=== PATIENT | male | born 1960 | race Caucasian/White ===

== ENCOUNTER → 2018-01-05 | Outpatient (CLI) | payer BC ==
[~2018-01-05] MED LIST: BENICAR20 MG PO; OTEZLA PO
--- NOTE | 2018-01-05 11:51 | Diagnostic Imaging Report ---
PROCEDURE:CHEST 2 VIEWS TECHNIQUE:PA and lateral chest INDICATION:TB test COMPARISON:None. FINDINGS: Lungs are clear and symmetrically inflated. No pleural effusions. Normal heart size, mediastinal contour, and pulmonary vasculature. Intact skeleton. CONCLUSION: No evidence of active infection. Dictated by: Roverto Butler M.D. on 01/05/2018 at 11:53 Electronically approved by: Roverto Butler M.D. on 01/05/2018 at 11:53
== END ==
LOC: RAD 10:56
PROVIDERS: ATTEND Dermatology
DX: Z79.899 Other long term (current) drug therapy (principal)
CPT/HCPCS: 71046

== ENCOUNTER 2020-09-04 04:41 | Emergency (ER) | payer BC ==
[~2020-09-04] VITALS: Ht 188 cm; Wt 117.9 kg
[2020-09-04 04:55] LABS: BASOPHILS # (AUTO) 0.1 (0.0-0.1); BASOPHILS % 0.8 % (0.0-1.0); EOSINOPHILS % 0.4 % (0.0-6.0); HEMATOCRIT 47.8 % (38.2-49.6); HEMOGLOBIN 16.6 g/dL (14.0-18.0); LYMPHOCYTES # (AUTO) 1.4 (1.0-3.2); LYMPHOCYTES % 17.7 % (18.0-39.1); MEAN CORPUSCULAR HEMOGLOBIN 29.7 pg (28-32); MEAN CORPUSCULAR HGB CONC 34.7 g/dL (31-35); MEAN CORPUSCULAR VOLUME 85.7 fL (81-99); MONOCYTES # (AUTO) 0.4 (0.2-0.8); MONOCYTES % 5.3 % (4.4-11.3); NEUTROPHILS % 75.2 % (38.7-80.0); PLATELET COUNT 291 x10e3/uL (140-360); RED BLOOD COUNT 5.58 x10e6/uL (4.3-5.7); RED CELL DISTRIBUTION WIDTH 12.1 % (11.7-14.4)
[2020-09-04 05:14] LABS: ALANINE AMINOTRANSFERASE 29 IU/L (0-55); ALBUMIN 4.1 g/dL (3.5-5.0); ALBUMIN/GLOBULIN RATIO 1.4 (0.8-2.0); ALKALINE PHOSPHATASE 71 IU/L (40-150); BLOOD UREA NITROGEN 15 mg/dL (7-26); BUN/CREATININE RATIO 15 (6-25); CALCIUM 8.9 mg/dL (8.4-10.2); CARBON DIOXIDE 24 mmol/L (22-29); CHLORIDE 103 mmol/L (98-107); CREATINE KINASE 89 IU/L (30-200); CREATININE, SERUM 1.03 mg/dL (0.72-1.25); EST GLOMERULAR FILTRATION RATE > 60 ML/MIN (60-); GLUCOSE 130 mg/dL (74-118); SODIUM 139 mmol/L (136-145)
[2020-09-04 07:39] VITALS: BP 137/100
== END 2020-09-04 07:41 | disposition home or self-care (01) ==
LOC: ER 04:48
DX: I10 Essential (primary) hypertension (principal); Z88.0 Allergy status to penicillin; Z91.010 Allergy to peanuts; Z88.6 Allergy status to analgesic agent; Z86.19 Personal history of other infectious and parasitic diseases
CPT/HCPCS: 36415; 70450; 71045; 80053; 82550; 82553; 84484; 85025; 93005; 99284

== ENCOUNTER 2023-11-14 09:53 | Inpatient (IN) | payer BC ==
[~2023-11-14] VITALS: Ht 203.2 cm; Wt 136.1 kg
[2023-11-14] VITALS (9 sets, daily range): BP systolic 124–150; BP diastolic 72–103; PULSE 68–77; RESP 16–20; TEMP 97.4–98.4; O2SAT 96–100
[2023-11-14 10:21] LABS: BASOPHILS # (AUTO) 0.1 (0.0-0.1); BASOPHILS % 0.5 % (0.0-1.0); EOSINOPHILS # (AUTO) 0.1 (0.0-0.4); EOSINOPHILS % 0.5 % (0.0-6.0); HEMATOCRIT 56.4 % (38.2-49.6); HEMOGLOBIN 19.6 g/dL (14.0-18.0); LYMPHOCYTES # (AUTO) 1.7 (1.0-3.2); LYMPHOCYTES % 12.9 % (18.0-39.1); MEAN CORPUSCULAR HEMOGLOBIN 32.2 pg (28-32); MEAN CORPUSCULAR HGB CONC 34.8 g/dL (31-35); MEAN CORPUSCULAR VOLUME 92.8 fL (81-99); MONOCYTES # (AUTO) 0.9 (0.2-0.8); MONOCYTES % 7.3 % (4.4-11.3); NEUTROPHILS # (AUTO) 10.1 (2.1-6.9); PLATELET COUNT 252 x10e3/uL (140-360); RED BLOOD COUNT 6.08 x10e6/uL (4.3-5.7); RED CELL DISTRIBUTION WIDTH 13.2 % (11.7-14.4); WHITE BLOOD COUNT 12.88 x10e3/uL (4.8-10.8)
[2023-11-14 10:35] LABS: INR 0.94; PARTIAL THROMBOPLASTIN TIME 24.6 seconds (23.8-35.5); PROTHROMBIN TIME 13.2 seconds (11.9-14.5)
[2023-11-14 10:42] LABS: ALBUMIN 3.8 g/dL (3.5-5.0); ALBUMIN/GLOBULIN RATIO 1.2 (0.8-2.0); ANION GAP 14.1 mmol/L (8-16); BILIRUBIN,TOTAL 0.6 mg/dL (0.2-1.2); CALCIUM 9.3 mg/dL (8.4-10.2); CREATININE, SERUM 0.96 mg/dL (0.72-1.25); MAGNESIUM 1.9 MG/DL (1.3-2.1); POTASSIUM 4.1 mmol/L (3.5-5.1)
[2023-11-14 10:48] LABS: TROPONIN I 0.003 ng/mL (0-0.300)
[2023-11-14] MEDS ORDERED: Sodium Chloride 0.9% 50ML Bag ONE (10:49)
[2023-11-14] MEDS ORDERED: IOPAMIDOL 370 MG/ML 100 ML INFUS..BTL INJ ONE ×2 (10:49→11:24)
[2023-11-14] MEDS ORDERED: ASPIRIN 81 MG ENTERIC COATED PO ONE (11:42)
[2023-11-14] MEDS: ASPIRIN 81 MG CHEW TAB PO ONE (11:44)
[2023-11-14] MEDS ORDERED: ONDANSETRON HCL INJ 2MG/ML 2ML 2 MG/ML VIAL IV PRN (11:45)
[2023-11-14] MEDS ORDERED: ASPIRIN 81 MG CHEW TAB ONE (11:46)
[2023-11-14] MEDS ORDERED: HYDRALAZINE HCL 20 MG/ML VIAL ONE (13:18)
[2023-11-14] MEDS: HYDRALAZINE HCL 20 MG/ML VIAL IV PRN (13:19)
[2023-11-14] MEDS: AMLODIPINE BESYLATE 5 MG TAB PO SCH (13:45)
[2023-11-14] MEDS ORDERED: ALBUTEROL/IPRATROPIUM 3 ML NEB NEB PRN (15:15)
[2023-11-14] MEDS ORDERED: AMLODIPINE BESYL5 MG PO (15:49)
[2023-11-14] MEDS ORDERED: ATENOLOL50 MG PO (15:49)
[2023-11-14] MEDS ORDERED: AMLODIPINE BESYLATE 5 MG TAB ONE (16:12)
[2023-11-14] MEDS ORDERED: ENOXAPARIN SOD INJ 40 MG/0.4 ML SYR SC ONE (16:16)
[2023-11-14] MEDS: ENOXAPARIN SOD INJ 40 MG/0.4 ML SYR SC SCH (17:00)
[2023-11-14 20:10] LABS: TROPONIN I 0.001 ng/mL (0-0.300)
[2023-11-14] MEDS: FAMOTIDINE 20 MG/2 ML VIAL IV SCH (21:20)
[2023-11-15] VITALS (8 sets, daily range): BP systolic 135–155; BP diastolic 93–115; PULSE 71–97; RESP 18–21; TEMP 97.4–98.3; O2SAT 95–98
[2023-11-15 01:02] LABS: TROPONIN I 0.009 ng/mL (0-0.300)
[2023-11-15] MEDS: ACETAMINOPHEN 325 MG TAB PO PRN (05:01)
[2023-11-15 05:35] LABS: BASOPHILS # (AUTO) 0.1 (0.0-0.1); BASOPHILS % 0.5 % (0.0-1.0); EOSINOPHILS # (AUTO) 0.1 (0.0-0.4); EOSINOPHILS % 0.5 % (0.0-6.0); HEMATOCRIT 57.8 % (38.2-49.6); HEMOGLOBIN 19.1 g/dL (14.0-18.0); LYMPHOCYTES # (AUTO) 1.4 (1.0-3.2); LYMPHOCYTES % 12.6 % (18.0-39.1); MEAN CORPUSCULAR HEMOGLOBIN 31.2 pg (28-32); MEAN CORPUSCULAR VOLUME 94.3 fL (81-99); MONOCYTES # (AUTO) 0.8 (0.2-0.8); MONOCYTES % 6.6 % (4.4-11.3); NEUTROPHILS # (AUTO) 9.1 (2.1-6.9); NEUTROPHILS % 79.2 % (38.7-80.0); PLATELET COUNT 266 x10e3/uL (140-360); RED BLOOD COUNT 6.13 x10e6/uL (4.3-5.7); RED CELL DISTRIBUTION WIDTH 13.2 % (11.7-14.4); WHITE BLOOD COUNT 11.43 x10e3/uL (4.8-10.8)
[2023-11-15 06:23] LABS: ALBUMIN 3.9 g/dL (3.5-5.0); ALBUMIN/GLOBULIN RATIO 1.3 (0.8-2.0); ANION GAP 15.7 mmol/L (8-16); BILIRUBIN,TOTAL 0.8 mg/dL (0.2-1.2); CALCIUM 9.1 mg/dL (8.4-10.2); CHOL/HDL RATIO 5.7 (3.9-4.7); CREATININE, SERUM 0.94 mg/dL (0.72-1.25); POTASSIUM 3.7 mmol/L (3.5-5.1)
[2023-11-15] MEDS ORDERED: AMLODIPINE BESYLATE 5 MG TAB PO SCH (09:00)
[2023-11-15] MEDS ORDERED: AMLODIPINE BESYLATE 5 MG TAB ONE ×2 (09:41→15:48)
[2023-11-15] MEDS ORDERED: ACETAMINOPHEN 325 MG TAB ONE (09:41)
[2023-11-15] MEDS ORDERED: FAMOTIDINE 20 MG/2 ML VIAL IV ONE (09:41)
[2023-11-15] MEDS ORDERED: ASPIRIN 81 MG ENTERIC COATED PO ONE (09:41)
[2023-11-15] MEDS ORDERED: ATENOLOL 100 MG TAB ONE (09:41)
[2023-11-15] MEDS: ATENOLOL 100 MG TAB PO SCH (10:52)
[2023-11-15] MEDS: ASPIRIN 81 MG ENTERIC COATED PO SCH (10:52)
[2023-11-15] MEDS: HYDRALAZINE HCL 20 MG/ML VIAL IV STA (10:54)
[2023-11-15] MEDS ORDERED: ONDANSETRON HCL 4 MG ORAL DISINTEGRATING TAB PO PRN (13:15)
[2023-11-15] MEDS ORDERED: ENOXAPARIN SOD INJ 40 MG/0.4 ML SYR SC ONE (15:48)
== END 2023-11-15 21:03 | disposition home or self-care (01) | DRG 313 ==
LOC: ER 10:06 → ERHOLD 11:43 → MED/SURG2 13:03
PROVIDERS: ADMIT Internal Medicine; ATTEND Internal Medicine
DX: R07.2 Precordial pain (principal); E66.01 Morbid (severe) obesity due to excess calories; I10 Essential (primary) hypertension; E78.5 Hyperlipidemia, unspecified; D75.1 Secondary polycythemia; G47.33 Obstructive sleep apnea (adult) (pediatric); Z11.52 Encounter for screening for COVID-19; L40.9 Psoriasis, unspecified; K21.9 Gastro-esophageal reflux disease without esophagitis; D72.829 Elevated white blood cell count, unspecified; Z68.32 Body mass index [BMI] 32.0-32.9, adult; Z85.828 Personal history of other malignant neoplasm of skin; Z87.891 Personal history of nicotine dependence; Z91.010 Allergy to peanuts; Z88.5 Allergy status to narcotic agent; Z88.0 Allergy status to penicillin
CPT/HCPCS: 36415; 70450; 71045; 71260; 80053; 80061; 82550; 82948; 83735; 83880; 84484; 85025; 85610; 85730; 87400; 93005; 93306; 94799; 99284; J0360; J1650; Q9967; U0002